=== PATIENT | female | born 1980 | race Hispanic/Latino ===

== ENCOUNTER 2022-09-07 21:20 | Day surgery (SDC) | payer SELFPAY ==
[2022-09-07 21:42] VITALS: BMI 28.9
== END 2022-09-08 00:10 | disposition home or self-care (01) ==
LOC: CSHLD/OP 21:20
PROVIDERS: ATTEND Student in an Organized Health Care Education/Training Program
DX: O47.1 False labor at or after 37 completed weeks of gestation (principal); Z3A.37 37 weeks gestation of pregnancy
CPT/HCPCS: 99283

== ENCOUNTER 2022-09-10 11:59 | Inpatient (IN) | payer OTHER, SELFPAY ==
[2022-09-10 12:47] VITALS: BMI 28.9
[2022-09-10 13:27] LABS: Hemoglobin 12.5 g/dL (12.0-15.5); Mean Corpuscular HGB CONC 34.6 g/dL (32.0-36.0); Mean Corpuscular Hemoglobin 31.2 pg (27.0-33.0); Platelet Count 290 10x3/uL (150-450); Red Blood Cell (RBC) Count 4.01 10x6/uL (3.90-5.03); White Blood Cell (WBC) Count 12.8 10x3/uL (3.5-10.5)
[2022-09-10 13:52] LABS: SARS-CoV-2 NAA Rapid Test Not Detected (NotDetected)
[2022-09-10] MEDS: Fentanyl 2 mcg/Bup 0.1% Cadd 100 ML ONE ×2 (14:02→22:15)
[2022-09-10] MEDS ORDERED: Moisturizing Cream (Eucerin) 113 GM JAR TOP PRN (14:15)
[2022-09-10] MEDS ORDERED: Ondansetron PF 4 MG/2 ML Vial IVP PRN ×2 (14:15→15:17)
[2022-09-10] MEDS ORDERED: Naloxone HCl 0.4 mg/ml Vial IVP PRN ×2 (14:15)
[2022-09-10] MEDS ORDERED: Acetaminophen 325 MG TAB PO PRN (14:15)
[2022-09-10] MEDS ORDERED: Promethazine HCl 25 MG/ML VIAL IM PRN ×2 (14:15→15:17)
[2022-09-10] MEDS ORDERED: ePHEDrine Sulfate 50 MG/10 ML VIAL SLOW IVP PRN (14:15)
[2022-09-10] MEDS ORDERED: Lactated Ringer's 500 ML IV PRN (14:15)
[2022-09-10] MEDS ORDERED: diphenhydrAMINE 50 MG/ML VIAL IVP PRN (14:15)
[2022-09-10] MEDS ORDERED: Communication Order-Pharmacy FS SCH (14:15)
[2022-09-10] MEDS ORDERED: Fentanyl 2 mcg/Bupivacaine 0.1% Cassette 100 ML EPIDURAL SCH (14:15)
[2022-09-10] MEDS ORDERED: NS w/ Oxytocin 30 units 500 ML ONE (15:01)
[2022-09-10] MEDS ORDERED: HYDROcodone/Acetaminophen 5/325 mg Tablet PO PRN (15:17)
[2022-09-10] MEDS ORDERED: Acetaminophen 500 MG TAB PO PRN (15:17)
[2022-09-10] MEDS ORDERED: Diphenoxylate HCl/Atropine Tablet PO PRN (15:17)
[2022-09-10] MEDS ORDERED: Lidocaine 1% (PF) 30 ML VIAL SC PRN (15:17)
[2022-09-10] MEDS ORDERED: Methylergonovine 0.2 MG/ML VIAL IM PRN (15:17)
[2022-09-10] MEDS ORDERED: hydrALAZINE 20 MG/ML VIAL SLOW IVP PRN (15:17)
[2022-09-10] MEDS ORDERED: Carboprost 250 MCG/ML AMP IM PRN (15:17)
[2022-09-10] MEDS ORDERED: Butorphanol Tartrate 1 MG/ML VIAL SLOW IVP PRN (15:17)
[2022-09-10] MEDS ORDERED: Ibuprofen 800 MG TAB PO PRN (15:17)
[2022-09-10] MEDS ORDERED: Tranexamic Acid 1,000 MG in Sodium Chloride 0.9% 250 ML 250 ML IVPB PRN (15:17)
[2022-09-10] MEDS ORDERED: Misoprostol 200 MCG TAB PR PRN (15:17)
[2022-09-10] MEDS ORDERED: NS w/ Oxytocin 30 units 500 ML IV SCH ×2 (15:30)
[2022-09-10 17:49] LABS: HBSAg Index 0.15 S/CO (0-0.99); Hep B Surf Ag Non-Reactive S/CO (NonReactive); Syphilis Antibody Nonreactive (Nonreactive); Syphilis Antibody Index 0.04 S/CO (<1.00 Non-Reactive)
[2022-09-10] MEDS ORDERED: Fentanyl 100 MCG/2 ML VIAL ONE (23:15)
[2022-09-11] MEDS ORDERED: Bisacodyl 10 MG SUPP PR PRN (00:56)
[2022-09-11] MEDS ORDERED: Benzocaine-Menthol 82.5 ML CAN TOP PRN (00:56)
[2022-09-11] MEDS ORDERED: Milk Of Magnesia 30 ML UDCUP PO PRN (00:56)
[2022-09-11] MEDS ORDERED: Boostrix 0.5 ML (Tdap) VIAL (>/=7 yrs of age) IM ONE (00:56)
[2022-09-11] MEDS: Docusate 100 MG CAP PO SCH ×2 (08:02→23:33)
[2022-09-11] MEDS: Ferrous Sulfate 325 MG TAB PO SCH ×2 (08:23→18:26)
[2022-09-11] MEDS: Lactated Ringer's 1,000 ML IV SCH ×3 (08:23→23:32)
[2022-09-11] MEDS ORDERED: HYDROcodone/Acetaminophen 5/325 mg Tablet PO PRN (08:30)
[2022-09-11] MEDS ORDERED: Ibuprofen 800 MG TAB PO SCH (08:30)
[2022-09-11] MEDS: HYDROcodone/Acetaminophen 5/325 mg Tablet PO PRN ×2 (08:58→15:12)
[2022-09-11] MEDS: Ibuprofen 800 MG TAB PO SCH ×2 (11:56→18:34)
[2022-09-12] MEDS: Ibuprofen 800 MG TAB PO SCH ×2 (03:57→12:46)
[2022-09-12] MEDS: Lactated Ringer's 1,000 ML IV SCH (04:44)
[2022-09-12 08:03] VITALS: BP 94/65; TEMP 98.1
[2022-09-12] MEDS: HYDROcodone/Acetaminophen 5/325 mg Tablet PO PRN ×2 (08:14→12:44)
[2022-09-12] MEDS: Docusate 100 MG CAP PO SCH (08:19)
== END 2022-09-12 14:10 | disposition home or self-care (01) | DRG 807 ==
LOC: CSHLD 11:59 → CSHPP 09-11 03:40
PROVIDERS: ADMIT Student in an Organized Health Care Education/Training Program; ATTEND Student in an Organized Health Care Education/Training Program
PROC: 10E0XZZ Delivery of Products of Conception, External Approach (ICD-10-PCS; principal; 2022-09-10)
PROC: 0KQM0ZZ Repair Perineum Muscle, Open Approach (ICD-10-PCS; 2022-09-10)
DX: O70.1 Second degree perineal laceration during delivery (principal); Z37.0 Single live birth; Z3A.37 37 weeks gestation of pregnancy; Z20.822 Contact with and (suspected) exposure to COVID-19
CPT/HCPCS: 36415; 51702; 85014; 85018; 85027; 86780; 86850; 86900; 86901; 87340; 99285; J3010; U0002